=== PATIENT | female | born 2000 | race Caucasian/White ===

== ENCOUNTER 2025-02-04 22:24 | Emergency (ER) | payer BC ==
[2025-02-04 22:59] LABS: APPEARANCE,URINE CLOUDY (CLEAR); GLUCOSE,URINE NEGATIVE (NEGATIVE); OCCULT BLOOD,URINE LARGE (NEGATIVE)
[2025-02-04 23:09] LABS: EPITHELIAL CELLS,URINE NOT SEEN /HPF
[2025-02-04] MEDS: Acetaminophen/HYDROcodone 325-5 MG Tab PO ONE (23:17)
== END 2025-02-04 23:20 | disposition home or self-care (01) ==
LOC: LB.ED 22:24
DX: N30.01 Acute cystitis with hematuria (principal); Z79.899 Other long term (current) drug therapy
CPT/HCPCS: 81001; 81025; 87086; 99283; A9270